=== PATIENT | female | born 1940 ===

== ENCOUNTER 2024-04-05 12:00 | Outpatient (REF) | payer MEDICARE, SELFPAY ==
[2024-04-06 12:30] LABS: Bilirubin Urine NEGATIVE (NEGATIVE); Blood Urine LARGE (NEGATIVE); Clarity Urine CLEAR (CLEAR); Color Urine LT. YELLOW (YELLOW); Glucose Urine UA NEGATIVE (NEGATIVE); Ketones Urine TRACE mg/dL (NEGATIVE); Leukocyte Esterase Urine MODERATE (NEGATIVE); Nitrite Urine POSITIVE (NEGATIVE); Protein Urine >=300 mg/dL (NEG/TRACE); Specific Gravity Urine 1.025 (1.005-1.025); Urobilinogen Urine 0.2 EU/dL (0.2-1.0)
== END 2024-04-05 12:01 | disposition home or self-care (01) ==
LOC: LAB 12:00
DX: G20.C Parkinsonism, unspecified (principal); F03.90 Unspecified dementia, unspecified severity, without behavioral disturbance, psychotic disturbance, mood disturbance, and anxiety; N17.9 Acute kidney failure, unspecified; J44.9 Chronic obstructive pulmonary disease, unspecified; R82.998 Other abnormal findings in urine
CPT/HCPCS: 81003; 87086; 87150; 87186